=== PATIENT | female | born 1975 ===

== ENCOUNTER 2020-07-21 09:50 | Inpatient (IN) | payer BC, OTHER ==
[2020-07-21] MEDS ORDERED: Sodium Chloride 0.9% 1,000 ML IV ONE ×2 (10:09→12:13)
[2020-07-21] MEDS ORDERED: Labetalol 100 MG Tab PO SCH (11:00)
[2020-07-21 11:40] LABS: BLOOD UREA NITROGEN,BUN 14 mg/dL (7.0-18.0); CARBON DIOXIDE,CO2 20.4 mmol/L (21.0-32.0); CHLORIDE,CL 105 mmol/L (98-107); GLUCOSE RANDOM 69 mg/dL (74-106); POTASSIUM,K 4.2 mmol/L (3.5-5.1); SODIUM,NA 138 mmol/L (136-145)
[2020-07-21] MEDS ORDERED: ceFAZolin 2 GM in Premix Bag 1 BAG IV ONE (11:49)
[2020-07-21] MEDS ORDERED: Sodium Chloride 0.9% 2.5 ML Syringe FLUSH PRN (11:49)
[2020-07-21] MEDS ORDERED: Sodium Chloride 0.9% 10 ML SDV IV PRN (11:49)
[2020-07-21] MEDS ORDERED: Sodium Chloride 0.9% 10 ML Syringe FLUSH PRN (11:49)
[2020-07-21] MEDS ORDERED: Morphine PF 10 MG/10 ML SDV ONE (11:57)
[2020-07-21] MEDS ORDERED: Lactated Ringers 1,000 ML IV SCH ×2 (12:00→19:30)
[2020-07-21] MEDS ORDERED: hydrALAZINE 20 MG/ML SDV ONE (12:05)
[2020-07-21] MEDS ORDERED: ceFAZolin 1 GM Vial ONE (12:05)
[2020-07-21] MEDS ORDERED: Sodium Chloride 0.9% 20 ML ONE (12:05)
[2020-07-21] MEDS ORDERED: Ondansetron 4 MG/2 ML SDV ONE (12:11)
[2020-07-21] MEDS ORDERED: Ketorolac 30 MG/ML SDV ONE (12:11)
[2020-07-21] MEDS ORDERED: Phenylephrine 1% 10 MG/ML SDV ONE (12:11)
[2020-07-21] MEDS ORDERED: Oxytocin 10 Units/1 ML SDV ONE (12:11)
[2020-07-21] MEDS ORDERED: Citric Acid/Sodium Citrate Solution 30 ML Cup PO ONE (13:00)
[2020-07-21] MEDS ORDERED: Oxytocin/0.9 % Sodium Chloride 30 UNIT/500 ML BAG IV SCH (13:00)
[2020-07-21] MEDS ORDERED: Ketamine 500 mg/10 ML MDV ONE (13:07)
[2020-07-21] MEDS ORDERED: Labetalol 100 MG/20 ML MDV ONE (13:08)
[2020-07-21] MEDS ORDERED: Midazolam 1 MG/ML 2 ML SDV ONE ×2 (13:19→13:49)
--- NOTE | 2020-07-21 18:52 | PCM.POSTAN ---
POST ANESTHESIA ASSESSMENT - MENTAL STATUS Mental Status: Alert - VITAL SIGNS Vital Signs: Last Vital Signs Temp Pulse 81 07/21/20 11:13 Resp BP 152/91 H 07/21/20 11:13 Pulse Ox - RESPIRATORY Respiratory Status: Respiratory Rate WNL - CARDIOVASCULAR CV Status: Pulse Rate WNL - GASTROINTESTINAL GI Status: No Symptoms - POST OP HYDRATION Hydration Status: Adequate & Stable
--- NOTE | 2020-07-21 18:57 | PCM.POSTAN ---
POST ANESTHESIA ASSESSMENT - MENTAL STATUS Mental Status: Alert, Oriented - VITAL SIGNS Vital Signs: Last Vital Signs Temp Pulse 81 07/21/20 11:13 Resp BP 152/91 H 07/21/20 11:13 Pulse Ox - RESPIRATORY Respiratory Status: Respiratory Rate WNL - CARDIOVASCULAR CV Status: Pulse Rate WNL - GASTROINTESTINAL GI Status: No Symptoms - POST OP HYDRATION Hydration Status: Adequate & Stable
[2020-07-21] MEDS ORDERED: Methylergonovine 0.2 MG/1 ML Amp IM PRN (19:28)
[2020-07-21] MEDS ORDERED: Ondansetron 4 MG/2 ML SDV IVPUSH PRN (19:28)
[2020-07-21] MEDS ORDERED: Misoprostol 200 MCG Tab RECTAL PRN (19:28)
[2020-07-21] MEDS ORDERED: Tranexamic Acid 1,000 MG in Sodium Chloride 0.9% 100 ML IV PRN (19:28)
[2020-07-21] MEDS ORDERED: Oxytocin 10 Units/1 ML SDV IM PRN (19:28)
[2020-07-21] MEDS ORDERED: Bisacodyl 10 MG Supp RECTAL PRN (19:28)
[2020-07-21] MEDS ORDERED: Lanolin 100% Cream 7 GM Tube TOP PRN (19:28)
[2020-07-21] MEDS ORDERED: diphenhydrAMINE 50 MG/ML SDV IVPUSH PRN (19:28)
[2020-07-21] MEDS ORDERED: Acetaminophen/oxyCODONE 325-5 MG Tab PO PRN (19:28)
[2020-07-21] MEDS: Ketorolac 30 MG/ML SDV IVPUSH SCH (19:46)
[2020-07-21] MEDS: Docusate Sodium 100 MG Cap PO SCH (21:41)
[2020-07-21] MEDS: hydrOXYzine Pamoate 25 MG Cap PO PRN (21:41)
[2020-07-22] MEDS: Ketorolac 30 MG/ML SDV IVPUSH SCH ×4 (01:35→19:28)
[2020-07-22 07:07] LABS: BLOOD UREA NITROGEN,BUN 8 mg/dL (7.0-18.0); CHLORIDE,CL 107 mmol/L (98-107); GLUCOSE RANDOM 42 mg/dL (74-106); POTASSIUM,K 3.8 mmol/L (3.5-5.1); SODIUM,NA 139 mmol/L (136-145)
--- NOTE | 2020-07-22 08:16 | PCM48HPAN ---
Post Anesthesia Note - EVALUATION WITHIN 48HRS OF ANESTHETIC Vital Signs in Normal Range: Yes Patient Participated in Evaluation: Yes Respiratory Function Stable: Yes Airway Patent: Yes Cardiovascular Function Stable: Yes Hydration Status Stable: Yes Pain Control Satisfactory: Yes Nausea and Vomiting Control Satisfactory: Yes Mental Status Recovered: Yes Vital Signs: Last Vital Signs Temp 36.0 C L 07/22/20 04:33 Pulse 73 07/22/20 04:33 Resp 18 07/22/20 04:33 BP 118/72 07/22/20 04:33 Pulse Ox 98 07/22/20 04:33
[2020-07-22] MEDS: Docusate Sodium 100 MG Cap PO SCH ×2 (08:24→21:59)
--- NOTE | 2020-07-22 09:13 | PCM.PNPP ---
- General Info Date of Service: 07/22/20 Subjective Update: 44yo P3 s/p repeat POD 1 denies any complains Bottlefeeding Normal lochia H/H - FS low this am , Functional Status: Reports: Pain Controlled, Tolerating Diet, Ambulating - Review of Systems General: Reports: No Symptoms HEENT: Reports: No Symptoms Pulmonary: Reports: No Symptoms Cardiovascular: Reports: No Symptoms Gastrointestinal: Reports: No Symptoms Genitourinary: Reports: No Symptoms Musculoskeletal: Reports: No Symptoms Skin: Reports: No Symptoms Neurological: Reports: No Symptoms Psychiatric: Reports: No Symptoms - General Info Date of Service: 07/22/20 - Patient Data Vital Signs - Most Recent: Last Vital Signs Temp 36.1 C 07/22/20 08:35 Pulse 75 07/22/20 08:35 Resp 14 07/22/20 08:35 BP 136/71 07/22/20 08:35 Pulse Ox 98 07/22/20 08:35 Weight - Most Recent: 97.522 kg I&O - Last 24 Hours: Intake & Output 07/21/20 07/22/20 07/22/20 22:59 06:59 14:59 Intake Total 500 Output Total 1025 1700 Balance -1025 -1200 Lab Results - Last 24 Hours: Laboratory Results - last 24 hr 07/21/20 07/21/20 07/21/20 Range/Units 10:15 10:25 10:25 WBC 10.91 (4.0-11.0) K/uL RBC 4.42 (4.30-5.90) M/uL Hgb 13.9 (12.0-16.0) g/dL Hct 41.0 (36.0-46.0) % MCV 92.8 (80.0-98.0) fL MCH 31.4 (27.0-32.0) pg MCHC 33.9 (31.0-37.0) g/dL RDW Std Deviation 51.0 (28.0-62.0) fl RDW Coeff of Valeriano 15 (11.0-15.0) % Plt Count 217 (150-400) K/uL MPV 9.40 (7.40-12.00) fL Neut % (Auto) (48.0-80.0) % Lymph % (Auto) (16.0-40.0) % Rhea % (Auto) (0.0-15.0) % Eos % (Auto) (0.0-7.0) % Baso % (Auto) (0.0-1.5) % Neut # (Auto) (1.4-5.7) K/uL Lymph # (Auto) (0.6-2.4) K/uL Rhea # (Auto) (0.0-0.8) K/uL Eos # (Auto) (0.0-0.7) K/uL Baso # (Auto) (0.0-0.1) K/uL Nucleated RBC % 0.0 /100WBC Nucleated RBCs # 0 K/uL Sodium 138 (136-145) mmol/L Potassium 4.2 (3.5-5.1) mmol/L Chloride 105 (98-107) mmol/L Carbon Dioxide 20.4 L (21.0-32.0) mmol/L BUN 14 (7.0-18.0) mg/dL Creatinine 0.7 (0.6-1.0) mg/dL Est Cr Clr Drug Dosing 117.02 mL/min Estimated GFR (MDRD) > 60.0 ml/min Glucose 69 L (74-106) mg/dL POC Glucose (60-110) mg/dL Uric Acid 5.5 (2.6-7.2) mg/dL Calcium 8.2 L (8.5-10.1) mg/dL Total Bilirubin 0.4 (0.2-1.0) mg/dL AST 17 (15-37) IU/L ALT 18 (14-63) IU/L Alkaline Phosphatase 244 H (46-116) U/L Total Protein 6.9 (6.4-8.2) g/dL Albumin 2.5 L (3.4-5.0) g/dL Globulin 4.4 H (2.6-4.0) g/dL Albumin/Globulin Ratio 0.6 L (0.9-1.6) Ur Random Creatinine 53.2 mg/dL U Random Total Protein 9.6 (<11.9) mg/dL Protein/Creatinin Ratio 0.2 SARS-CoV-2 RNA (LYN) (NEGATIVE) Blood Type Antibody Screen 07/21/20 07/21/20 07/21/20 Range/Units 12:02 12:10 12:30 WBC (4.0-11.0) K/uL RBC (4.30-5.90) M/uL Hgb (12.0-16.0) g/dL Hct (36.0-46.0) % MCV (80.0-98.0) fL MCH (27.0-32.0) pg MCHC (31.0-37.0) g/dL RDW Std Deviation (28.0-62.0) fl RDW Coeff of Valeriano (11.0-15.0) % Plt Count (150-400) K/uL MPV (7.40-12.00) fL Neut % (Auto) (48.0-80.0) % Lymph % (Auto) (16.0-40.0) % Rhea % (Auto) (0.0-15.0) % Eos % (Auto) (0.0-7.0) % Baso % (Auto) (0.0-1.5) % Neut # (Auto) (1.4-5.7) K/uL Lymph # (Auto) (0.6-2.4) K/uL Rhea # (Auto) (0.0-0.8) K/uL Eos # (Auto) (0.0-0.7) K/uL Baso # (Auto) (0.0-0.1) K/uL Nucleated RBC % /100WBC Nucleated RBCs # K/uL Sodium (136-145) mmol/L Potassium (3.5-5.1) mmol/L Chloride (98-107) mmol/L Carbon Dioxide (21.0-32.0) mmol/L BUN (7.0-18.0) mg/dL Creatinine (0.6-1.0) mg/dL Est Cr Clr Drug Dosing mL/min Estimated GFR (MDRD) ml/min Glucose (74-106) mg/dL POC Glucose 64 (60-110) mg/dL Uric Acid (2.6-7.2) mg/dL Calcium (8.5-10.1) mg/dL Total Bilirubin (0.2-1.0) mg/dL AST (15-37) IU/L ALT (14-63) IU/L Alkaline Phosphatase (46-116) U/L Total Protein (6.4-8.2) g/dL Albumin (3.4-5.0) g/dL Globulin (2.6-4.0) g/dL Albumin/Globulin Ratio (0.9-1.6) Ur Random Creatinine mg/dL U Random Total Protein (<11.9) mg/dL Protein/Creatinin Ratio SARS-CoV-2 RNA (LYN) NEGATIVE (NEGATIVE) Blood Type O POSITIVE Antibody Screen NEGATIVE 07/22/20 07/22/20 07/22/20 Range/Units 06:20 06:20 06:20 WBC 10.18 (4.0-11.0) K/uL RBC 3.73 L (4.30-5.90) M/uL Hgb 11.5 L (12.0-16.0) g/dL Hct 35.4 L (36.0-46.0) % MCV 94.9 (80.0-98.0) fL MCH 30.8 (27.0-32.0) pg MCHC 32.5 (31.0-37.0) g/dL RDW Std Deviation 52.5 (28.0-62.0) fl RDW Coeff of Valeriano 15 (11.0-15.0) % Plt Count 186 (150-400) K/uL MPV 8.90 (7.40-12.00) fL Neut % (Auto) 71.4 (48.0-80.0) % Lymph % (Auto) 21.3 (16.0-40.0) % Rhea % (Auto) 6.6 (0.0-15.0) % Eos % (Auto) 0.5 (0.0-7.0) % Baso % (Auto) 0.2 (0.0-1.5) % Neut # (Auto) 7.3 H (1.4-5.7) K/uL Lymph # (Auto) 2.2 (0.6-2.4) K/uL Rhea # (Auto) 0.7 (0.0-0.8) K/uL Eos # (Auto) 0.1 (0.0-0.7) K/uL Baso # (Auto) 0.0 (0.0-0.1) K/uL Nucleated RBC % 0.0 /100WBC Nucleated RBCs # 0 K/uL Sodium 139 (136-145) mmol/L Potassium 3.8 (3.5-5.1) mmol/L Chloride 107 (98-107) mmol/L Carbon Dioxide 25.0 (21.0-32.0) mmol/L BUN 8 (7.0-18.0) mg/dL Creatinine 0.7 (0.6-1.0) mg/dL Est Cr Clr Drug Dosing 117.02 mL/min Estimated GFR (MDRD) > 60.0 ml/min Glucose 42 L (74-106) mg/dL POC Glucose (60-110) mg/dL Uric Acid 4.3 (2.6-7.2) mg/dL Calcium 7.4 L (8.5-10.1) mg/dL Total Bilirubin 0.3 (0.2-1.0) mg/dL AST 25 (15-37) IU/L ALT 17 (14-63) IU/L Alkaline Phosphatase 174 H (46-116) U/L Total Protein 5.9 L (6.4-8.2) g/dL Albumin 1.9 L (3.4-5.0) g/dL Globulin 4.0 (2.6-4.0) g/dL Albumin/Globulin Ratio 0.5 L (0.9-1.6) Ur Random Creatinine mg/dL U Random Total Protein (<11.9) mg/dL Protein/Creatinin Ratio SARS-CoV-2 RNA (LYN) (NEGATIVE) Blood Type Antibody Screen Med Orders - Current: Current Medications Bisacodyl (Dulcolax) 10 mg RECTAL ONETIME PRN PRN Reason: Constipation Diphenhydramine HCl (Benadryl) 25 mg IVPUSH Q6H PRN PRN Reason: Itching or Nausea Docusate Sodium (Colace) 100 mg PO BID [facility] Last Admin: 07/22/20 08:24 Dose: 100 mg Documented by: Emollient Ointment (Lansinoh Hpa) 0 gm TOP ASDIRECTED PRN PRN Reason: Sore Nipples Hydroxyzine Pamoate (Vistaril) 25 mg PO Q6H PRN PRN Reason: Anxiety Last Admin: 07/21/20 21:41 Dose: 25 mg Documented by: Oxytocin/Sodium Chloride (Oxytocin 30 Unit/500 Ml-Ns) 30 unit in 500 mls @ 250 mls/hr IV TITRATE [facility] Lactated Ringer's (Ringers, Lactated) 1,000 mls @ 125 mls/hr IV ASDIRECTED [facility] Tranexamic Acid 1,000 mg/ (Sodium Chloride) 110 mls @ 660 mls/hr IV ONETIME PRN PRN Reason: Bleeding Ibuprofen (Motrin) 800 mg PO Q8H PRN PRN Reason: mild pain or fever Ketorolac Tromethamine (Toradol) 30 mg IVPUSH Q6H [facility] Stop: 07/22/20 19:31 Last Admin: 07/22/20 08:01 Dose: 30 mg Documented by: Methylergonovine Maleate (Methergine) 0.2 mg IM ONETIME PRN PRN Reason: Excessive Vaginal Bleeding Misoprostol (Cytotec) 1,000 mcg RECTAL ONETIME PRN PRN Reason: excessive bleeding Ondansetron HCl (Zofran) 4 mg IVPUSH Q4H PRN PRN Reason: Nausea/Vomiting Oxycodone/Acetaminophen (Percocet 325-5 Mg) 1 tab PO Q4H PRN PRN Reason: Pain (moderate 4-6) Oxycodone/Acetaminophen (Percocet 325-5 Mg) 2 tab PO Q4H PRN PRN Reason: Pain (moderate 4-6) Oxytocin (Pitocin) 10 unit IM ASDIRECTED PRN PRN Reason: Excessive Vaginal Bleeding Sodium Chloride (Saline Flush) 10 ml FLUSH ASDIRECTED PRN PRN Reason: Keep Vein Open Sodium Chloride (Saline Flush) 2.5 ml FLUSH ASDIRECTED PRN PRN Reason: Keep Vein Open Sodium Chloride (Normal Saline) 10 ml IV ASDIRECTED PRN PRN Reason: IV Use Discontinued Medications Cefazolin Sodium (Ancef) Confirm Administered Dose 2 gm .ROUTE .STK-MED ONE Stop: 07/21/20 12:06 Citric Acid/Sodium Citrate (Bicitra Solution) 30 ml PO ONETIME ONE Stop: 07/21/20 13:01 Hydralazine HCl (Apresoline) Confirm Administered Dose 20 mg .ROUTE .STK-MED ONE Stop: 07/21/20 12:06 Last Admin: 07/21/20 18:09 Dose: Not Given Documented by: Sodium Chloride (Normal Saline) 1,000 mls @ 999 mls/hr IV .Bolus ONE Stop: 07/21/20 11:09 Last Admin: 07/21/20 10:29 Dose: 999 mls/hr Documented by: Cefazolin Sodium/Dextrose 2 gm (/ Premix) 50 mls @ 100 mls/hr IV ONETIME ONE Stop: 07/21/20 12:18 Last Admin: 07/21/20 18:09 Dose: Not Given Documented by: Sodium Chloride (Normal Saline) Confirm Administered Dose 20 mls @ as directed .ROUTE .STK-MED ONE Stop: 07/21/20 12:06 Sodium Chloride (Normal Saline) 1,000 mls @ 999 mls/hr IV .Bolus ONE Stop: 07/21/20 13:13 Last Admin: 07/21/20 18:09 Dose: Not Given Documented by: Ketamine HCl (Ketalar) Confirm Administered Dose 500 mg .ROUTE .STK-MED ONE Stop: 07/21/20 13:08 Ketorolac Tromethamine (Toradol) Confirm Administered Dose 30 mg .ROUTE .STK-MED ONE Stop: 07/21/20 12:12 Labetalol HCl (Normodyne) 100 mg PO BID [facility] Last Admin: 07/21/20 11:13 Dose: 100 mg Documented by: Labetalol HCl (Normodyne) Confirm Administered Dose 100 mg .ROUTE .STK-MED ONE Stop: 07/21/20 13:09 Midazolam HCl (Versed 1 Mg/Ml) Confirm Administered Dose 2 mg .ROUTE .STK-MED ONE Stop: 07/21/20 13:20 Midazolam HCl (Versed 1 Mg/Ml) Confirm Administered Dose 2 mg .ROUTE .STK-MED ONE Stop: 07/21/20 13:50 Morphine Sulfate (Duramorph Pf) Confirm Administered Dose 10 mg .ROUTE .STK-MED ONE Stop: 07/21/20 11:58 Ondansetron HCl (Zofran) Confirm Administered Dose 4 mg .ROUTE .STK-MED ONE Stop: 07/21/20 12:12 Oxytocin (Pitocin) Confirm Administered Dose 20 unit .ROUTE .STK-MED ONE Stop: 07/21/20 12:12 Phenylephrine HCl (Brant-Synephrine) Confirm Administered Dose 10 mg .ROUTE .STK- MED ONE Stop: 07/21/20 12:12 - Infant Interaction Support Person: - Recovery Exam Fundal Tone: Firm Fundal Level: 1 Fingerbreadths Below Umbilicus Fundal Placement: Midline Lochia Amount: Scant Lochia Color: Rubra/Red Perineum Description: Intact, Minimal Bruising/Swelling Episiotomy/Laceration: None Bladder Status: Indwelling Catheter in Place Urinary Elimination: Indwelling Catheter - Exam General: Alert HEENT: Pupils Equal Neck: Supple Lungs: Clear to Auscultation Cardiovascular: Regular Rate, Regular Rhythm GI/Abdominal Exam: Normal Bowel Sounds Extremities: Normal Inspection Neurological: No New Focal Deficit - Problem List & Annotations (1) delivery delivered SNOMED Code(s): 199832415 Code(s): O82 - ENCOUNTER FOR DELIVERY WITHOUT INDICATION Status: Acute Current Visit: Yes (2) Diabetes SNOMED Code(s): 52448362 Code(s): E11.9 - TYPE 2 DIABETES MELLITUS WITHOUT COMPLICATIONS Status: Acute Current Visit: Yes Qualifiers: Diabetes mellitus type: type 2 - Problem List Review Problem List Initiated/Reviewed/Updated: Yes - My Orders Last 24 Hours: My Active Orders 07/22/20 Lunch [place] [employer] Diet [DIET] - Assessment Assessment:: 44yo s/p repeat , POD1 Type 2 DM GHTN not on meds Stable postop - Plan Plan:: Routine Incentive spirometry Pain control as needed Farias out , follow void FS pre and post prandial , will hold insulin for now SCDs
[2020-07-22] MEDS: hydrOXYzine Pamoate 25 MG Cap PO PRN (19:34)
[2020-07-22] MEDS: Acetaminophen/oxyCODONE 325-5 MG Tab PO PRN (23:23)
[2020-07-23] MEDS: Acetaminophen/oxyCODONE 325-5 MG Tab PO PRN (03:45)
[2020-07-23] MEDS: Ibuprofen 800 MG Tab PO PRN ×2 (06:54→15:04)
[2020-07-23] MEDS: Docusate Sodium 100 MG Cap PO SCH (08:45)
[2020-07-23] MEDS ORDERED: Labetalol 100 MG Tab PO SCH (09:00)
--- NOTE | 2020-07-23 09:41 | PCM.PNPP ---
- General Info Date of Service: 07/23/20 Subjective Update: 44yo P3 s/p repeat POD 2 denies any complains Bottlefeeding Normal lochia H/H - FS control is fair BPs now in 130s - 140s/80s - 90s , denies headache RUQ pain and BV , Functional Status: Reports: Pain Controlled, Tolerating Diet, Ambulating, Urinating - Review of Systems General: Reports: No Symptoms HEENT: Reports: No Symptoms Pulmonary: Reports: No Symptoms Cardiovascular: Reports: No Symptoms Gastrointestinal: Reports: No Symptoms Genitourinary: Reports: No Symptoms Musculoskeletal: Reports: No Symptoms Skin: Reports: No Symptoms Neurological: Reports: No Symptoms Psychiatric: Reports: No Symptoms - General Info Date of Service: 07/23/20 - Patient Data Vital Signs - Most Recent: Last Vital Signs Temp 36.6 C 07/23/20 07:38 Pulse 76 07/23/20 08:45 Resp 14 07/23/20 07:38 BP 140/99 H 07/23/20 08:45 Pulse Ox 95 07/23/20 07:38 Weight - Most Recent: 97.522 kg I&O - Last 24 Hours: Intake & Output 07/22/20 07/23/20 07/23/20 22:59 06:59 14:59 Output Total 2600 Balance -2600 Lab Results - Last 24 Hours: Laboratory Results - last 24 hr 07/21/20 07/22/20 07/22/20 Range/Units 23:08 06:53 09:30 POC Glucose 97 36 L 105 (60-110) mg/dL 07/22/20 07/22/20 Range/Units 11:56 17:01 POC Glucose 119 H 153 H (60-110) mg/dL Med Orders - Current: Current Medications Bisacodyl (Dulcolax) 10 mg RECTAL ONETIME PRN PRN Reason: Constipation Diphenhydramine HCl (Benadryl) 25 mg IVPUSH Q6H PRN PRN Reason: Itching or Nausea Docusate Sodium (Colace) 100 mg PO BID [facility] Last Admin: 07/23/20 08:45 Dose: 100 mg Documented by: Emollient Ointment (Lansinoh Hpa) 0 gm TOP ASDIRECTED PRN PRN Reason: Sore Nipples Hydroxyzine Pamoate (Vistaril) 25 mg PO Q6H PRN PRN Reason: Anxiety Last Admin: 07/22/20 19:34 Dose: 25 mg Documented by: Oxytocin/Sodium Chloride (Oxytocin 30 Unit/500 Ml-Ns) 30 unit in 500 mls @ 250 mls/hr IV TITRATE [facility] Lactated Ringer's (Ringers, Lactated) 1,000 mls @ 125 mls/hr IV ASDIRECTED [facility] Tranexamic Acid 1,000 mg/ (Sodium Chloride) 110 mls @ 660 mls/hr IV ONETIME PRN PRN Reason: Bleeding Ibuprofen (Motrin) 800 mg PO Q8H PRN PRN Reason: mild pain or fever Last Admin: 07/23/20 06:54 Dose: 800 mg Documented by: Labetalol HCl (Normodyne) 100 mg PO BID [facility] Last Admin: 07/23/20 08:45 Dose: 100 mg Documented by: Methylergonovine Maleate (Methergine) 0.2 mg IM ONETIME PRN PRN Reason: Excessive Vaginal Bleeding Misoprostol (Cytotec) 1,000 mcg RECTAL ONETIME PRN PRN Reason: excessive bleeding Ondansetron HCl (Zofran) 4 mg IVPUSH Q4H PRN PRN Reason: Nausea/Vomiting Oxycodone/Acetaminophen (Percocet 325-5 Mg) 1 tab PO Q4H PRN PRN Reason: Pain (moderate 4-6) Oxycodone/Acetaminophen (Percocet 325-5 Mg) 2 tab PO Q4H PRN PRN Reason: Pain (moderate 4-6) Last Admin: 07/23/20 03:45 Dose: 2 tab Documented by: Oxytocin (Pitocin) 10 unit IM ASDIRECTED PRN PRN Reason: Excessive Vaginal Bleeding Sodium Chloride (Saline Flush) 10 ml FLUSH ASDIRECTED PRN PRN Reason: Keep Vein Open Sodium Chloride (Saline Flush) 2.5 ml FLUSH ASDIRECTED PRN PRN Reason: Keep Vein Open Sodium Chloride (Normal Saline) 10 ml IV ASDIRECTED PRN PRN Reason: IV Use Discontinued Medications Cefazolin Sodium (Ancef) Confirm Administered Dose 2 gm .ROUTE .STK-MED ONE Stop: 07/21/20 12:06 Citric Acid/Sodium Citrate (Bicitra Solution) 30 ml PO ONETIME ONE Stop: 07/21/20 13:01 Hydralazine HCl (Apresoline) Confirm Administered Dose 20 mg .ROUTE .STK-MED ONE Stop: 07/21/20 12:06 Last Admin: 07/21/20 18:09 Dose: Not Given Documented by: Sodium Chloride (Normal Saline) 1,000 mls @ 999 mls/hr IV .Bolus ONE Stop: 07/21/20 11:09 Last Admin: 07/21/20 10:29 Dose: 999 mls/hr Documented by: Cefazolin Sodium/Dextrose 2 gm (/ Premix) 50 mls @ 100 mls/hr IV ONETIME ONE Stop: 07/21/20 12:18 Last Admin: 07/21/20 18:09 Dose: Not Given Documented by: Sodium Chloride (Normal Saline) Confirm Administered Dose 20 mls @ as directed .ROUTE .STK-MED ONE Stop: 07/21/20 12:06 Sodium Chloride (Normal Saline) 1,000 mls @ 999 mls/hr IV .Bolus ONE Stop: 07/21/20 13:13 Last Admin: 07/21/20 18:09 Dose: Not Given Documented by: Ketamine HCl (Ketalar) Confirm Administered Dose 500 mg .ROUTE .STK-MED ONE Stop: 07/21/20 13:08 Ketorolac Tromethamine (Toradol) Confirm Administered Dose 30 mg .ROUTE .STK-MED ONE Stop: 07/21/20 12:12 Ketorolac Tromethamine (Toradol) 30 mg IVPUSH Q6H [facility] Stop: 07/22/20 19:31 Last Admin: 07/22/20 19:28 Dose: 30 mg Documented by: Labetalol HCl (Normodyne) 100 mg PO BID [facility] Last Admin: 07/21/20 11:13 Dose: 100 mg Documented by: Labetalol HCl (Normodyne) Confirm Administered Dose 100 mg .ROUTE .STK-MED ONE Stop: 07/21/20 13:09 Midazolam HCl (Versed 1 Mg/Ml) Confirm Administered Dose 2 mg .ROUTE .STK-MED ONE Stop: 07/21/20 13:20 Midazolam HCl (Versed 1 Mg/Ml) Confirm Administered Dose 2 mg .ROUTE .STK-MED ONE Stop: 07/21/20 13:50 Morphine Sulfate (Duramorph Pf) Confirm Administered Dose 10 mg .ROUTE .STK-MED ONE Stop: 07/21/20 11:58 Ondansetron HCl (Zofran) Confirm Administered Dose 4 mg .ROUTE .STK-MED ONE Stop: 07/21/20 12:12 Oxytocin (Pitocin) Confirm Administered Dose 20 unit .ROUTE .STK-MED ONE Stop: 07/21/20 12:12 Phenylephrine HCl (Brant-Synephrine) Confirm Administered Dose 10 mg .ROUTE .STK- MED ONE Stop: 07/21/20 12:12 - Interaction Support Person: - Recovery Exam Fundal Tone: Firm Fundal Level: 1 Fingerbreadths Below Umbilicus Fundal Placement: Midline Lochia Amount: Scant Lochia Color: Rubra/Red Perineum Description: Intact, Minimal Bruising/Swelling Episiotomy/Laceration: None Bladder Status: Voiding Urinary Elimination: Voided - Exam General: Alert HEENT: Pupils Equal Neck: Supple Lungs: Clear to Auscultation, Normal Respiratory Effort Cardiovascular: Regular Rate, Regular Rhythm GI/Abdominal Exam: Normal Bowel Sounds Extremities: Normal Inspection Wound/Incisions: Dressing Dry and Intact Neurological: No New Focal Deficit Psy/Mental Status: Alert - Problem List & Annotations (1) delivery delivered SNOMED Code(s): 481851180 Code(s): O82 - ENCOUNTER FOR DELIVERY WITHOUT INDICATION Status: Acute Current Visit: Yes (2) Diabetes SNOMED Code(s): 60427460 Code(s): E11.9 - TYPE 2 DIABETES MELLITUS WITHOUT COMPLICATIONS Status: Acute Current Visit: Yes Qualifiers: Diabetes mellitus type: type 2 - Problem List Review Problem List Initiated/Reviewed/Updated: No - My Orders Last 24 Hours: My Active Orders 07/22/20 Lunch [place] Diet [DIET] 07/23/20 09:00 Labetalol [Normodyne] 100 mg PO BID - Assessment Assessment:: 44yo s/p repeat , POD2 Type 2 DM GHTN not on meds Stable postop Increasing BP , but mild range - Plan Plan:: Routine Incentive spirometry Pain control as needed Will start Metformin at home start Labetalol 100mg bid Discharge home today
[2020-07-23] MEDS: hydrOXYzine Pamoate 25 MG Cap PO PRN (16:19)
--- NOTE | 2020-07-24 08:22 | OR ---
SURGEON: Genaro Gudino MD DATE OF PROCEDURE: 07/21/2020 PRIMARY SURGEON: Genaro Gudino MD INDICATION FOR PROCEDURE: A 44-year-old G3, P2-0-0-2, at 37 weeks and 5 days, presenting in labor. She has history of 1 prior , she declines trial of labor after section. The patient started having contractions a few hours ago. After arriving at Labor and Delivery, her cervix was closed but was having uncomfortable contractions every 2 to 3 minutes that became increasingly stronger. She has a history of gestational hypertension and is on labetalol 100 mg BID. She had mostly mild- range blood pressures with a few severe-range, preeclampsia labs which were normal with a protein/creatinine of 0.2. She did not respond to oral labetalol and was given hydralazine 20 mg and responded well to that. She is a type 2 diabetic, and was on metformin prior to becoming . She was controlled with insulin during . She had been receiving growth ultrasounds and had weekly NST and BPP, which were reassuring. Decision was made to proceed with a section due to labor and severe gestational HTN. PREOPERATIVE DIAGNOSES: 1. Mcrae intrauterine at 37 weeks and 5 days. 2. Gestational hypertension. 3. Type 2 diabetes. POSTOPERATIVE DIAGNOSES: 1. Mcrae intrauterine at 37 weeks and 5 days. 2. Gestational hypertension. 3. Type 2 diabetes. 4. Breech presentation. PROCEDURE PERFORMED: Repeat low-transverse section. ANESTHESIA: Spinal. ANESTHESIOLOGIST: Dr. Scott Darby. ESTIMATED BLOOD LOSS: 700 mL. FINDINGS: A viable female , scores of 4 and 5, thick meconium, complete breech presentation, and nuchal cord x2. DESCRIPTION OF PROCEDURE: The procedure was discussed with the patient. The risks and complications, including bleeding, infection, DVTs, and injury to surrounding organs, including ureter, bladder, and bowel. The patient expressed understanding. Consent was signed. The patient was brought to the operating room. She received 2 g of Ancef and SCDs. Spinal anesthesia was performed without difficulty. A Farias catheter was placed. The abdomen was prepped with chlorhexidine in sterile fashion and then draped and tested for analgesia. The spinal was adequate. A Pfannenstiel incision was made with a scalpel at the site of the previous incision. It was dissected down to the fascia with a scalpel. Sites of bleeding were cauterized. The fascia was cleared of subcutaneous tissue bluntly. The fascia was then incised in the midline and extended laterally with curved Allen scissors. Don clamps were placed on the superior fascial edge. The rectus muscles were from the fascia by blunt dissection and using Allen scissors. The same was performed on the inferior fascial edge. The peritoneum was identified, and an opening was made bluntly. The rectus muscles were carefully in the midline. An Guillermo O retractor was placed in the peritoneal cavity. The bowel was packed away with a moist sponge. A bladder flap was created by gentle dissection of the vesicouterine peritoneum and pushed away from the site of the hysterotomy. The uterus was incised using the scalpel at the lower uterine segment transversely and was extended bluntly. Amniotic fluid with thick meconium was noted. The infant was noted to be in complete breech presentation. The infant's hips were grasped, turned sacrum anterior, and elevated through the hysterotomy, followed by delivery of the buttocks and both legs. The right shoulder was then rotated anteriorly and the right arm delivered by sweeping the hand towards the body. Then the left shoulder was delivered in a similar fashion. The head was delivered by flexing the chin and elevating the body. The nose and mouth were suctioned. The baby did not cry initially but was moving all extremities. Double nuchal cord was noted and reduced. The umbilical cord was clamped and cut, and the was handed off to nursery staff. Cord blood was obtained. The placenta was removed with gentle traction on the umbilical cord. The uterus was cleared of any remaining membranes with a clean lap. Allis clamps were used to grasp the angles and lower edges of the incision. The uterine incision was closed with running nonlocking suture using 0 Monocryl. Small oozing edges were noted and cauterized with Bovie. Hemostasis was confirmed. The uterus was firm. The paracolic gutters were cleared of any clots. The incision was irrigated with copious amounts of sterile water. The incision was again checked for hemostasis. The peritoneum and rectus muscles were closed with interrupted [id number] sutures. The rectus muscle was carefully examined and noted to be hemostatic. The fascia was closed using two 0 Vicryl sutures. Subcutaneous tissue was irrigated and the bleeding areas cauterized. The subcutaneous layer was brought together with 2-0 plain suture. Skin was closed subcuticularly with 4-0 Vicryl on a Edward needle. An ABD dressing was placed over the incision. The patient was stable and transferred to the recovery room. JINA HDZ /[id number] HELLEN
== END 2020-07-23 18:05 | disposition home or self-care (01) | DRG 786 ==
LOC: MW.OBCHECK 09:50 → EDBD 09:50 → MW.OB 10:07 → MW.OBCHECK 11:48 → MW.OB 11:49
PROVIDERS: ADMIT Obstetrics & Gynecology; ATTEND Obstetrics & Gynecology
PROC: 10D00Z1 Extraction of Products of Conception, Low, Open Approach (ICD-10-PCS; principal; 2020-07-21)
DX: O13.4 Gestational [pregnancy-induced] hypertension without significant proteinuria, complicating childbirth (principal); O41.1230 Chorioamnionitis, third trimester, not applicable or unspecified; Z3A.37 37 weeks gestation of pregnancy; Z37.0 Single live birth; O34.211 Maternal care for low transverse scar from previous cesarean delivery; O32.1XX0 Maternal care for breech presentation, not applicable or unspecified; Z20.828 Contact with and (suspected) exposure to other viral communicable diseases; O24.12 Pre-existing type 2 diabetes mellitus, in childbirth; E11.9 Type 2 diabetes mellitus without complications; O77.0 Labor and delivery complicated by meconium in amniotic fluid
CPT/HCPCS: 01961; 36415; 59025; 80053; 82570; 82962; 84156; 84550; 85025; 85027; 86592; 86850; 86900; 86901; 88307; A9270-GY; J0360; J0690; J1885; J2250; J2270; J2370; J2405; J2590; J3490; J7030; U0002